=== PATIENT | female | born 1975 | race Two or more races ===

== ENCOUNTER 2017-05-24 12:56 | Emergency (ER) | payer BC ==
--- NOTE | 2017-05-24 14:38 | EDM.PDOC ---
ED HPI GENERAL MEDICAL PROBLEM - General Chief Complaint: Skin Complaint Stated Complaint: ABSCESS IN BREAST Time Seen by Provider: 05/24/17 13:40 Source of Information: Reports: Patient History Limitations: Reports: No Limitations - History of Present Illness INITIAL COMMENTS - FREE TEXT/NARRATIVE: 41 year old female presents for evaluation and treatment of an abscess to the right breast. Patient reports she first developed the abscess in September. She has been seen in [place] and [place] for the abscess. Reports she had an I&D done in December. States she last saw her surgeon in early April. States she has been trying to get ahold of her surgeon but due to the holidays she has had trouble getting ahold of him. Presents today for management of the abscess. She is not currently on antibiotics. Patient reprots she was hospitalized in [place] for what sounds like sepsis from the breast abscess. Patient reports Wednesday she developed a hard area to the right breast. States the area opened and it began leaking serous fluid. She reports associated fatigue and chills. States she has felt feverish but has not taken her temperature. No nausea or vomiting. Per records from [place]: Seen in the ER on 12-30-16, CRP elevated at 10.1, wbc elevated at 16.4, started on cephalexin 1g bid x 10 days. Seen in clinic on 01-01-17 scheduled for a mammogram. Seen in clinic on 01-04-17 scheduled for an ultrasound. seen in clinic 01-05-17 ultrasound results and referral to surgery an I&D; seen by surgery scheduled for I&D in the OR for 01-07-17 OR for I&D 01-07-17 sample sent for culture, cytology and pathology Seen in clinic 01-18-17 post op with surgery Seen in clinic 05-04-17 by surgery plan to repeat ultrasound 05-11-71 repeat ultrasound; dx with simple cyst vs. hematoma vs. recurrent abscess Seen in clinic on 05-21-17 I&D done in the clinic, packed right breast area Pain Score (Numeric/FACES): 4 - Related Data Allergies Allergy/AdvReac Type Severity Reaction Status Date / Time No Known Allergies Allergy Verified 05/24/17 13:08 Home Meds: Home Meds Doxycycline [Vibramycin] 100 mg PO Q12HR #20 cap 05/24/17 [Rx] Multivitamin [Multivitamins] 1 each PO DAILY 05/24/17 [History] traMADol [Ultram] 50 mg PO Q6H 05/24/17 [History] Past Medical History - Past Health History Medical/Surgical History: Denies Medical/Surgical History [employer] History: Reports: Musculoskeletal History: Reports: Arthritis Dermatologic History: Reports: Other (See Below) Other Dermatologic History: breast abcesses requiring intervention - Past Surgical History Female Surgical History: Reports: Hysterectomy, Other (See Below) Other Female Surgeries/Procedures: breast abcess removal Musculoskeletal Surgical History: Reports: Knee Replacement Social & Family History - Family History Family Medical History: Noncontributory - Tobacco Use Smoking Status *Q: Current Every Day Smoker Years of Tobacco use: 15 Packs/Tins Daily: 0.1 - Caffeine Use Caffeine Use: Reports: Coffee - Recreational Drug Use Recreational Drug Use: No ED ROS GENERAL - Review of Systems Review Of Systems: See Below Constitutional: Reports: Fever (not temperature taken; feels feverish), Chills, Fatigue GI/Abdominal: Denies: Nausea, Vomiting Skin: Reports: Wound (right breast), Lumps (right breast) ED EXAM, SKIN/RASH Exam: See Below Exam Limited By: No Limitations General Appearance: Alert, WD/WN, No Apparent Distress Respiratory/Chest: No Respiratory Distress, Lungs Clear, Normal Breath Sounds Cardiovascular: Normal Peripheral Pulses, Regular Rate, Rhythm, No Murmur Extremities: Other (no palpable axillary lymph nodes) Neurological: Alert, Oriented, Normal Cognition Psychiatric: Normal Affect, Normal Mood Skin: Warm, Dry, Normal Color, Wound/Incision (pproximately 1.5cm headed wound to the right breast inferior to the areola at hte 7 o'clock position; approximately 1 cm in diameter open area to the lateral aspect of the wound; no drainage, no surrounding erythema; area is tender to palpation) Location, Skin: Other (right breast 7 o'clock ) Associated features: Tenderness. No: Warmth, Weeping Course - Vital Signs Last Recorded V/S: Last Vital Signs Temp 36.4 C 05/24/17 13:03 Pulse 74 05/24/17 13:03 Resp 18 05/24/17 13:03 BP 138/70 05/24/17 13:03 Pulse Ox 98 05/24/17 13:03 - Re-Assessments/Exams Free Text/Narrative Re-Assessment/Exam: 05/24/17 14:00 Obtained records from [place]. Will review and formulate appropriate plan. 05/24/17 14:36 Patient called and states she got a hold of her surgeon. She would like to kleave at this time. No labs were obtained other than the culture. I'll start on some doxycycline twice a day. She is follow-up with her surgeon on Wednesday. Discharge instructions as documented. Departure - Departure Time of Disposition: 14:36 Disposition: Home, Self-Care 01 Condition: Fair Clinical Impression: Abscess - Discharge Information Prescriptions: Doxycycline [Vibramycin] 100 mg PO Q12HR #20 cap Instructions: Abscess, [id number] Referrals: PCP,Not In Area [Primary Care Provider] - Forms: ED Department Discharge Additional Instructions: Take the doxycycline one Twice a day for 10 days. [id number] Tylenol or Motrin seen for pain relief. Follow up with your surgeon Wednesday as planned. Please return to the ER if your symptoms change or worsen.
== END 2017-05-24 14:50 | disposition home or self-care (01) ==
LOC: JD.ED 12:56
DX: N61.1 Abscess of the breast and nipple (principal); F17.210 Nicotine dependence, cigarettes, uncomplicated
CPT/HCPCS: 87070; 99283; 99284